=== PATIENT | male | born 1960 | race Caucasian/White ===

== ENCOUNTER 2017-02-18 23:47 | Emergency (ER) | payer OTHER, SELFPAY | END 2017-02-19 01:00 | disposition home or self-care (01) | LOC: SCSER 23:47 | DX: K02.9 Dental caries, unspecified (principal); K04.7 Periapical abscess without sinus; K21.9 Gastro-esophageal reflux disease without esophagitis; F32.9 Major depressive disorder, single episode, unspecified; Z87.891 Personal history of nicotine dependence | CPT/HCPCS: 99283 ==

== ENCOUNTER 2018-01-14 22:30 | Observation (INO) | payer SELFPAY ==
[~2018-01-14 22:30] MED LIST: ISOVUE-370 76%-LOCM 1 ML ONE
[2018-01-14] MEDS ORDERED: Ondansetron PF 4 MG/2 ML Vial ONE (22:52)
[2018-01-14 23:01] LABS: Hemoglobin 14.6 g/dL (14.0-18.0); Mean Corpuscular HGB CONC 33.3 g/dL (32.0-36.0); Mean Corpuscular Hemoglobin 28.7 pg (27.0-31.0); Mean Corpuscular Volume 86.3 fL (78.0-98.0); Mean Platelet Volume 8.2 fL (7.4-10.4); Platelet Count 274 thou/uL (130-400); RBC Distribution Width 12.4 % (11.5-14.5); Red Blood Cell (RBC) Count 5.07 mill/uL (4.70-6.10); White Blood Cell (WBC) Count 26.3 thou/uL (4.8-10.8)
[2018-01-14 23:18] LABS: Band 8 % (5-11); Lymphocytes 3 % (21-51); MDiff Complete? YES; Monocytes 1 % (0-10); Neutrophil 88 % (42-75); PLT Morphology Comment Appears Adequate; RBC Morphology Normal
[2018-01-14 23:22] LABS: ALT (SGPT) 18 U/L (8-55); AST (SGOT) 14 U/L (5-34); Albumin 4.4 g/dL (3.5-5.0); Alkaline Phosphatase 94 U/L (40-150); Anion Gap 19 mmol/L (10-20); BUN (Urea Nitrogen) 17 mg/dL (8.4-25.7); Bilirubin, Total 0.7 mg/dL (0.2-1.2); Calc. Creatinine Clearance 0 mL/min (70-130); Calcium 9.7 mg/dL (7.8-10.44); Carbon Dioxide 17 mmol/L (22-29); Chloride 101 mmol/L (98-107); Estimated GFR-MDRD 57; Globulin 3.6 g/dL (2.4-3.5); Glucose 171 mg/dL (70-105); Lipase 10 U/L (8-78); Potassium 3.7 mmol/L (3.5-5.1); Sodium 133 mmol/L (136-145)
[2018-01-14] MEDS ORDERED: Metoclopramide HCl 10 MG/2 ML VIAL ONE (23:46)
--- NOTE | 2018-01-15 00:16 | CT ---
CT ABDOMEN AND PELVIS: 01/14/2018 HISTORY: Abdominal pain. Right lower quadrant pain. COMPARISON: None. TECHNIQUE: Serial axial CT imaging at 5 mm intervals, from the lung bases through the pubic symphysis, with IV c ontrast. Coronal reformatted imaging obtained. FINDINGS: The visualized lung bases are unremarkable. Incidental note is made of a focal area of cystic pulmonary parenchymal change within the right lower lobe, measuring 3.1 cm. No free intraperitoneal air or fluid. There is no suspicious hepatic lesion. There are numerous tiny hypodensities scattered throughout th e liver, too small to characterize, statistically likely representing cysts. The gallbladder, spleen, pancreas, adrenal glands, and kidneys demonstrate no acute findings. No evidence for bowel inflammatory change or obstruction. Evaluation of the bowel is limited without oral contrast. There is scattered atherosclerotic calcification of the abdominal aorta and its branches. No abdomin al or pelvic lymphadenopathy. No acute osseous abnormality. IMPRESSION: No acute findings. POS: [facility]
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
[2018-01-15 00:52] LABS: Bilirubin Negative (Negative); Blood, Urine Small (Negative); Clarity CLEAR (Clear); Glucose, Urine (Dipstick) 100 mg/dL (Negative); Leukocyte Negative (Negative); Nitrite Negative (Negative); Protein, Urine (Dipstick) Trace mg/dL (Neg-Trace); pH, Urine 8.5 (5.0-9.0)
[2018-01-15 00:54] LABS: Bacteria/HPF None Seen HPF (None Seen); Hyaline Casts/LPF 0-3 HYALINE CAST LPF (0-3 Hyaline); Pathc Cast-AUWi Flag 0.14 (0-2.49); Squamous Epithelial 0-3 HPF (0-3); WBC/HPF 0-3 HPF (0-3)
[2018-01-15 01:01] LABS: Specific Gravity, Urine Greater than 1.060 (1.002-1.036)
[2018-01-15] MEDS ORDERED: Acetaminophen 325 MG TAB PO PRN ×2 (01:01→01:10)
[2018-01-15] MEDS ORDERED: Ondansetron ODT 4 MG TAB SL PRN (01:01)
[2018-01-15] MEDS ORDERED: Ondansetron PF 4 MG/2 ML Vial IVP PRN ×2 (01:01→01:10)
[2018-01-15] MEDS ORDERED: Sodium Chloride 0.9% 1,000 ML IV SCH (01:01)
[2018-01-15] MEDS ORDERED: Ondansetron ODT 4 MG TAB PO PRN (01:10)
[2018-01-15] MEDS ORDERED: Metoclopramide HCl 10 MG/2 ML VIAL IVP PRN (01:18)
[2018-01-15 01:31] VITALS: BMI 29.3
[2018-01-15] MEDS: Lactated Ringer's 1,000 ML IV SCH ×3 (01:38→16:38)
[2018-01-15 01:41] LABS: Amphetamine Not Detected (NotDetected); Barbiturates Screen Not Detected (NotDetected); Benzodiazepine Screen Not Detected (NotDetected); Cocaine Metabolite Screen Not Detected (NotDetected); Medtox Control Line Valid? VALID (VALID); Medtox Reader # READER 1; Methadone Not Detected (NotDetected); Methamphetamine Not Detected (NotDetected); Opiate Screen Not Detected (NotDetected); Oxycodone Screen Not Detected (NotDetected); Phencyclidine (PCP) Not Detected (NotDetected); THC/Cannabinoid Screen Detected (NotDetected); Tricyclic Screen Not Detected (NotDetected)
[2018-01-15 06:03] LABS: Hemoglobin 12.8 g/dL (14.0-18.0); Mean Corpuscular HGB CONC 32.4 g/dL (32.0-36.0); Mean Corpuscular Hemoglobin 28.4 pg (27.0-31.0); Mean Corpuscular Volume 87.6 fL (78.0-98.0); Platelet Count 239 thou/uL (130-400); RBC Distribution Width 12.5 % (11.5-14.5); Red Blood Cell (RBC) Count 4.52 mill/uL (4.70-6.10); White Blood Cell (WBC) Count 23.2 thou/uL (4.8-10.8)
[2018-01-15 06:21] LABS: Anion Gap 14 mmol/L (10-20); BUN (Urea Nitrogen) 16 mg/dL (8.4-25.7); Calc. Creatinine Clearance 92 mL/min (70-130); Calcium 9.4 mg/dL (7.8-10.44); Carbon Dioxide 22 mmol/L (22-29); Chloride 104 mmol/L (98-107); Estimated GFR-MDRD 63; Glucose 126 mg/dL (70-105); Potassium 3.7 mmol/L (3.5-5.1); Sodium 136 mmol/L (136-145)
[2018-01-15 06:26] LABS: Band 1 % (5-11); Hypochromia SLIGHT = 6-15 cells (100X) (0-5/hpf); MDiff Complete? YES; Monocytes 1 % (0-10); Neutrophil 98 % (42-75); PLT Morphology Comment Appears Adequate
--- NOTE | 2018-01-15 07:41 | PDOC.FM ---
- Objective Vital Signs & Weight: Vital Signs (12 hours) Temp Pulse Resp BP Pulse Ox 01/15/18 03:58 99.3 F 95 22 H 139/65 97 01/15/18 00:56 98.6 F 98 18 122/80 99 Weight Weight 92.805 kg I&O: 01/14/18 01/15/18 01/16/18 06:59 06:59 06:59 Intake Total 349 Balance 349 Result Diagrams: 01/15/18 05:35 01/15/18 05:35
[2018-01-15] MEDS: Dicyclomine 10 MG CAP PO SCH ×4 (08:41→20:27)
[2018-01-16] MEDS ORDERED: diphenhydrAMINE 50 MG CAP PO PRN (01:27)
[2018-01-16] MEDS: Lactated Ringer's 1,000 ML IV SCH ×2 (01:42→11:58)
[2018-01-16] MEDS ORDERED: hydrALAZINE 20 MG/ML VIAL SLOW IVP PRN (06:34)
[2018-01-16 08:16] LABS: Anion Gap 13 mmol/L (10-20); BUN (Urea Nitrogen) 13 mg/dL (8.4-25.7); Calc. Creatinine Clearance 111 mL/min (70-130); Calcium 8.9 mg/dL (7.8-10.44); Carbon Dioxide 21 mmol/L (22-29); Chloride 102 mmol/L (98-107); Estimated GFR-MDRD 78; Glucose 108 mg/dL (70-105); Potassium 3.4 mmol/L (3.5-5.1); Sodium 133 mmol/L (136-145)
[2018-01-16 09:00] LABS: White Blood Cell (WBC) Count 21.1 thou/uL (4.8-10.8)
[2018-01-16 09:54] LABS: Hemoglobin 12.1 g/dL (14.0-18.0); Mean Corpuscular HGB CONC 33.3 g/dL (32.0-36.0); Mean Corpuscular Hemoglobin 29.4 pg (27.0-31.0); Mean Corpuscular Volume 88.4 fL (78.0-98.0); Platelet Count 213 thou/uL (130-400); RBC Distribution Width 12.5 % (11.5-14.5); Red Blood Cell (RBC) Count 4.11 mill/uL (4.70-6.10)
[2018-01-16 09:55] LABS: Band 27 % (5-11); Lymphocytes 11 % (21-51); MDiff Complete? YES; Monocytes 6 % (0-10); Neutrophil 55 % (42-75); RBC Morphology Normal; Reactive Lymphocytes 1 % (0-10)
--- NOTE | 2018-01-16 10:59 | PDOC.FM ---
- Subjective Subjective: Doing well today, had one emesis episode yesterday. Still having ongoing watery diarrhea that has improved. No other concerns. - Objective MAR Reviewed: Yes Vital Signs & Weight: Vital Signs (12 hours) Temp Pulse Resp BP Pulse Ox 01/16/18 07:33 98.2 F 94 20 137/85 96 01/16/18 04:53 99.5 F 94 18 175/77 H 94 L 01/15/18 23:38 100.5 F H 91 20 134/77 96 Weight Weight 93.44 kg I&O: 01/15/18 01/16/18 01/17/18 06:59 06:59 06:59 Intake Total 349 4993 Output Total 300 Balance 349 4693 Result Diagrams: 01/16/18 07:41 01/16/18 07:41 <Emily Navarrete - Last Filed: 01/16/18 10:56> - Objective Vital Signs & Weight: Vital Signs (12 hours) Temp Pulse Resp BP Pulse Ox 01/16/18 07:33 98.2 F 94 20 137/85 96 01/16/18 04:53 99.5 F 94 18 175/77 H 94 L 01/15/18 23:38 100.5 F H 91 20 134/77 96 Weight Weight 93.44 kg I&O: 01/15/18 01/16/18 01/17/18 06:59 06:59 06:59 Intake Total 349 4993 Output Total 300 Balance 349 4693 Result Diagrams: 01/16/18 07:41 01/16/18 07:41 <Joni Quintanilla - Last Filed: 01/16/18 11:07> Phys Exam - Physical Examination Constitutional: NAD HEENT: PERRLA, moist MMs Neck: full ROM Respiratory: no wheezing, no rales, clear to auscultation bilateral Cardiovascular: RRR, no significant murmur Gastrointestinal: soft, non-tender, no distention, positive bowel sounds Musculoskeletal: no edema, pulses present Neurological: moves all 4 limbs Psychiatric: normal affect, A&O x 3 Skin: no rash, normal turgor, cap refill <2 seconds <Emily Navarrete - Last Filed: 01/16/18 10:56> Dx/Plan (1) Viral gastroenteritis Code(s): A08.4 - VIRAL INTESTINAL INFECTION, UNSPECIFIED Status: Acute (2) HARRISON (acute kidney injury) Code(s): N17.9 - ACUTE KIDNEY FAILURE, UNSPECIFIED Status: Acute (3) GERD (gastroesophageal reflux disease) Code(s): K21.9 - GASTRO-ESOPHAGEAL REFLUX DISEASE WITHOUT ESOPHAGITIS Status: Acute (4) History of drug abuse Code(s): Z87.898 - PERSONAL HISTORY OF OTHER SPECIFIED CONDITIONS Status: Acute (5) History of tobacco use Code(s): Z87.891 - PERSONAL HISTORY OF NICOTINE DEPENDENCE Status: Acute (6) Leukocytosis Code(s): D72.829 - ELEVATED WHITE BLOOD CELL COUNT, UNSPECIFIED Status: Acute - Plan Plan: 57 yo M with viral gastroenteritis Viral gastroenteritis -one time febrile episode of 100.5, resolved with tylenol -N/V alleviated with zofran -able to tolerate meals -workup for bacterial involvement negative Leukocytosis -improved, bandemia today, like from stress response or resolving viral GE -clinically improved, rx outpatient follow up HARRISON, resolved -aware, continue to monitor if needed Tobacco abuse -counseled on importance of cessation Cannabis abuse -counseled on importance of cessatoin GERD -protonix dvt ppx: SCD gi ppx: protonix dispo: if tolerates lunch, will send home today with f/u outpt discussed w/ dr. quintanilla <Emily Navarrete - Last Filed: 01/16/18 10:56> (1) HARRISON (acute kidney injury) Code(s): N17.9 - ACUTE KIDNEY FAILURE, UNSPECIFIED Status: Acute (2) Intractable vomiting with nausea Code(s): R11.2 - NAUSEA WITH VOMITING, UNSPECIFIED Status: Acute (3) Hyponatremia Code(s): E87.1 - HYPO-OSMOLALITY AND HYPONATREMIA Status: Acute (4) Leukocytosis Code(s): D72.829 - ELEVATED WHITE BLOOD CELL COUNT, UNSPECIFIED Status: Acute (5) History of drug abuse Code(s): Z87.898 - PERSONAL HISTORY OF OTHER SPECIFIED CONDITIONS Status: Acute (6) History of tobacco use Code(s): Z87.891 - PERSONAL HISTORY OF NICOTINE DEPENDENCE Status: Acute (7) GERD (gastroesophageal reflux disease) Code(s): K21.9 - GASTRO-ESOPHAGEAL REFLUX DISEASE WITHOUT ESOPHAGITIS Status: Acute <Joni Quintanilla - Last Filed: 01/16/18 11:07> Attending Addendum - Attending Addendum Date/Time: 01/16/18 4405 I personally evaluated the patient and discussed the management with Dr. Navarrete. I agree with the History, Examination, Assessment and Plan documented above with any addition or exceptions noted below. Patient doing well and is tolerating diet well. Likely viral infection as his PCT and stool studies have been reassuring. Will be discharged home today with anti-emetic medication and outpatient follow up. <Joni Quintanilla - Last Filed: 01/16/18 11:07>
[2018-01-16 11:49] VITALS: BP 128/88; TEMP 98.3
--- NOTE | 2018-01-17 13:32 | DIS-2 ---
DATE OF ADMISSION: 01/15/2018 DATE OF DISCHARGE: 01/16/2018 RESIDENT: Emily Navarrete MD, PGY-1. ADMITTING ATTENDING: Kenneth Monsalve MD DISCHARGE ATTENDING: Joni Cross MD CONSULTATIONS: None. PROCEDURES: None. PRIMARY DIAGNOSES: Intractable nausea and vomiting secondary to acute viral gastroenteritis. SECONDARY DIAGNOSES: 1. Resolved acute kidney injury secondary to volume depletion from acute gastroenteritis. 2. Gastroesophageal reflux disease. DISCHARGE MEDICATIONS: 1. Zofran 4 mg q.6 h. p.r.n. nausea. 2. Omeprazole 40 mg daily. 3. Tylenol 650 mg q.6 h. p.r.n. fever. DISCONTINUED MEDICATIONS: None. HISTORY OF PRESENT ILLNESS AND HOSPITAL COURSE: A 57-year-old male with no known past medical history, admitted for intractable nausea and vomiting after eating an uncooked lava cake 3 days ago. He was also found to have an acute kidney injury secondary to volume depletion. Patient clinically improved with supportive care. Only lab finding that did not return to baseline was a persistent leukocytosis that decreased everyday but remained elevated above normal likely thought to be due to stress response from his acute gastritis. Patient remained afebrile and was able to tolerate po without problems. Patient has not seen PCP in years; it was discussed to follow up with Dr. Navarrete at [facility] to establish care. DISCHARGE INSTRUCTIONS: 1. Location: Home. 2. Diet: Heart healthy. 3. Activity: Ad solomon. 4. Follow up with Dr. Navarrete at [facility] in 7-10 days. [facility]
== END 2018-01-16 14:28 | disposition home or self-care (01) ==
LOC: ERS 22:30 → 2SW 01-15 01:01
PROVIDERS: ADMIT Emergency Medicine; ATTEND Emergency Medicine
DX: A08.4 Viral intestinal infection, unspecified (principal); E86.9 Volume depletion, unspecified; N17.9 Acute kidney failure, unspecified; K21.9 Gastro-esophageal reflux disease without esophagitis; F19.11 Other psychoactive substance abuse, in remission; E87.1 Hypo-osmolality and hyponatremia; D72.829 Elevated white blood cell count, unspecified; Z87.891 Personal history of nicotine dependence; Z88.5 Allergy status to narcotic agent
CPT/HCPCS: 36415; 74177; 80048; 80053; 80306; 81003; 81015; 83630; 83690; 84145; 85025; 87045; 87046; 87081; 87324; 87430; 87449; 87804; 87899; 96361; 96374; 96375; 96376; G0378; J2405; J2765; Q0162

== ENCOUNTER 2018-06-29 16:53 | Emergency (ER) | payer SELFPAY | END 2018-06-29 18:25 | disposition home or self-care (01) | LOC: ERS 16:53 | DX: K62.89 Other specified diseases of anus and rectum (principal); K21.9 Gastro-esophageal reflux disease without esophagitis; F41.9 Anxiety disorder, unspecified; F32.9 Major depressive disorder, single episode, unspecified; Z87.891 Personal history of nicotine dependence | CPT/HCPCS: 99283 ==

== ENCOUNTER 2019-03-23 00:23 | Emergency (ER) | payer OTHER, SELFPAY ==
[2019-03-23] MEDS ORDERED: Ondansetron ODT 4 MG TAB ONE (00:49)
[2019-03-23 01:09] LABS: #Basophils 0.1 thou/uL (0.0-0.2); #Monocytes 1.1 thou/uL (0.11-0.59); #Neutrophils 7.9 thou/uL (1.40-6.50); %Basophils 0.6 % (0.0-1.0); %Eosinophils 0.3 % (0.0-10.0); %Lymphocytes 18.2 % (21.0-51.0); %Monocytes 10.1 % (0.0-10.0); %Neutrophils 70.9 % (42.0-75.0); Hemoglobin 15.5 g/dL (14.0-18.0); Mean Corpuscular HGB CONC 34.6 g/dL (32.0-36.0); Mean Corpuscular Hemoglobin 29.9 pg (27.0-31.0); Mean Corpuscular Volume 86.4 fL (78.0-98.0); Mean Platelet Volume 8.3 fL (7.4-10.4); Platelet Count 274 thou/uL (130-400); RBC Distribution Width 12.4 % (11.5-14.5); Red Blood Cell (RBC) Count 5.18 mill/uL (4.70-6.10); White Blood Cell (WBC) Count 11.2 thou/uL (4.8-10.8)
[2019-03-23 01:29] LABS: ALT (SGPT) 17 U/L (8-55); AST (SGOT) 17 U/L (5-34); Albumin 4.8 g/dL (3.5-5.0); Alkaline Phosphatase 119 U/L (40-110); Anion Gap 15 mmol/L (10-20); BUN (Urea Nitrogen) 17 mg/dL (8.4-25.7); Bilirubin, Total 0.5 mg/dL (0.2-1.2); CK (CPK) 183 U/L (30-200); Calc. Creatinine Clearance 0 mL/min (70-130); Calcium 9.7 mg/dL (7.8-10.44); Carbon Dioxide 23 mmol/L (22-29); Chloride 103 mmol/L (98-107); Estimated GFR-MDRD 53; Globulin 3.3 g/dL (2.4-3.5); Glucose 125 mg/dL (70-105); Lipase 26 U/L (8-78); Potassium 4.2 mmol/L (3.5-5.1); Protein, Total 8.1 g/dL (6.0-8.3); Sodium 137 mmol/L (136-145)
[2019-03-23] MEDS ORDERED: Ondansetron PF 4 MG/2 ML Vial ONE (02:58)
[2019-03-23 04:23] LABS: Bacteria/HPF None Seen HPF (None Seen); Bilirubin Negative (Negative); Blood, Urine 1+ (Negative); Clarity Clear (Clear); Glucose, Urine (Dipstick) Normal (Negative); Leukocyte Negative Leu/uL (Negative); Nitrite Negative (Negative); Protein, Urine (Dipstick) 10 mg/dL (Neg-Trace); RBC/HPF 0-3 HPF (0-3); Squamous Epithelial 0-3 HPF (0-3); Urobilinogen Normal mg/dL (Less than 2); WBC/HPF 0-3 HPF (0-3)
--- NOTE | 2019-03-23 08:00 | CT ---
PRELIMINARY REPORT/[facility]/EMERGENCY AFTER HOURS PROCEDURE EXAM: CT Abdomen and Pelvis with Intravenous Contrast CLINICAL HISTORY: 58 year old male presents to ED c/o nausea and vomiting X 3 days with abdominal tripe scraper mping. Patient reports he is able to tolerate fluid and food, however when he vomits there is stomach bile and streaks of blood. Patient reports loose stool, but normal for patient. Reports fever of 101 at home. Denies urinary complaints. No treatment prior to arrival TECHNIQUE: Axial computed tomography images of the abdomen and pelvis with intravenous contrast. CONTRAST: With; 70ML ISOVUE 370 COMPARISON: None provided. FINDINGS: LUNG BASES: No basilar airspace consolidation or pleural effusion. 2.6 cm right lower lobe cyst. LIVER: Multiple hepatic hypodensities, likely cysts. GALLBLADDER AND BILE DUCTS: Unremarkable. No calcified stone. No ductal dilation. PANCREAS: Unremarkable. SPLEEN: Too small to characterize hypodensity in the posterior inferior spleen, likely a cyst. ADRENAL GLANDS: Unremarkable. KIDNEYS, URETERS, AND BLADDER: Unremarkable. No hydronephrosis or nephrolithiasis. No ureteral or [place] dder calculi. STOMACH AND BOWEL: No obstruction. No wall thickening. No CT evidence of colitis or acute diverticuli tis. APPENDIX: No CT evidence for appendicitis. PERITONEUM: No free fluid. No free air. LYMPH NODES: No lymphadenopathy. REPRODUCTIVE: Unremarkable as visualized. VASCULATURE: No aortic aneurysm. BONES: No fracture or suspicious osseous abnormality. Transitional lumbosacral anatomy. ABDOMINAL WALL AND SOFT TISSUES: Unremarkable. IMPRESSION: No acute intra-abdominal or pelvic abnormality. ELECTRONICALLY SIGNED BY: Jose De Jesus Brock MD Mar 23, 2019 3:53:37 AM [facility]YSIC[facility] FINAL REPORT EMERGENT AFTER HOURS CT OF THE ABDOMEN AND PELVIS WITH CONTRAST: FINDINGS/IMPRESSION: I agree with the findings and impression given in the preliminary report per [facility] physici an. 1. No evidence of acute intraabdominal/pelvic abnormality. 2. Hepatic cysts.
[2019-03-23] MEDS ORDERED: Iopamidol-370 76% 500 ML 1 ML ONE (10:59)
== END 2019-03-23 05:24 | disposition home or self-care (01) ==
LOC: ERS 00:23
DX: R10.32 Left lower quadrant pain (principal); R11.2 Nausea with vomiting, unspecified; K52.9 Noninfective gastroenteritis and colitis, unspecified; F41.9 Anxiety disorder, unspecified; F32.9 Major depressive disorder, single episode, unspecified; Z87.891 Personal history of nicotine dependence
CPT/HCPCS: 36415; 74177; 80053; 81003; 81015; 82550; 83690; 85025; 96361; 96374; J2405; Q0162; Q9967

== ENCOUNTER 2021-02-03 16:08 | Emergency (ER) | payer OTHER ==
[2021-02-03] MEDS ORDERED: Ondansetron ODT 4 MG TAB ONE (18:58)
[2021-02-03] MEDS ORDERED: HYDROcodone/Acetaminophen 5/325 mg Tablet ONE (18:58)
== END 2021-02-03 19:04 | disposition home or self-care (01) ==
LOC: ERS 16:08
DX: S60.221A Contusion of right hand, initial encounter (principal); K21.9 Gastro-esophageal reflux disease without esophagitis; I10 Essential (primary) hypertension; Z87.891 Personal history of nicotine dependence; W01.198A Fall on same level from slipping, tripping and stumbling with subsequent striking against other object, initial encounter
CPT/HCPCS: Q0162

== ENCOUNTER → 2025-01-23 | Emergency (ER) | payer OTHER ==
[2025-01-23 17:29] LABS: Cocaine Metabolite Screen Negative (Negative); THC/Cannabinoid Screen PRELIM POSITIVE (Negative); Tricyclic Screen Negative (Negative)
[2025-01-23 20:12] LABS: #Basophils 0.04 10x3/uL (0.0-0.2); #Eosinophils 0.09 10x3/uL (0.0-0.7); #Monocytes 0.81 10x3/uL (0.11-0.59); #Neutrophils 6.54 10x3/uL (1.40-6.50); %Basophils 0.4 % (0.0-1.0); %Eosinophils 1.0 % (0.0-10.0); %Lymphocytes 20.5 % (21.0-51.0); %Monocytes 8.6 % (0.0-10.0); %Neutrophils 69.1 % (42.0-75.0); Hematocrit 40.4 % (42.0-52.0); Hemoglobin 13.4 g/dL (14.0-18.0); Mean Corpuscular Hemoglobin 28.6 pg (27.0-31.0); Mean Corpuscular Volume 86.1 fL (78.0-98.0); Platelet Count 282 10x3/uL (130-400); Red Blood Cell (RBC) Count 4.69 mill/uL (4.70-6.10); White Blood Cell (WBC) Count 9.46 10x3/uL (4.8-10.8)
[2025-01-23 20:46] LABS: Acetaminophen Less than 10 mcg/mL (Less than 10); Salicylate Less than 8.0 mg/dL (Less than 8.0)
[2025-01-23 20:48] LABS: ALT (SGPT) 33 U/L (Less than 45); AST (SGOT) 27 U/L (11-34); Albumin 4.2 g/dL (3.1-4.5); Alkaline Phosphatase 99 U/L (40-110); Anion Gap 15 mmol/L (10-20); BUN (Urea Nitrogen) 15 mg/dL (8.4-25.7); Bilirubin, Total 0.3 mg/dL (0.3-1.2); Calc. Creatinine Clearance 0 mL/min (70-130); Calcium 9.5 mg/dL (7.8-10.44); Carbon Dioxide 24 mmol/L (23-31); Chloride 107 mmol/L (98-107); Globulin 3.2 g/dL (2.4-3.5); Glucose 110 mg/dL (80-115); Potassium 4.1 mmol/L (3.5-5.1); Sodium 142 mmol/L (136-145)
== END ==
LOC: ERS 15:36
DX: R45.851 Suicidal ideations (principal); I10 Essential (primary) hypertension; Z55.6 Problems related to health literacy; Z87.891 Personal history of nicotine dependence; Z79.899 Other long term (current) drug therapy
CPT/HCPCS: 36415; 80053; 80306; 80307; 85025; 93005; 99285; Q0162